=== PATIENT | female | born 1965 | race Caucasian/White ===

== ENCOUNTER → 2018-01-05 | Outpatient (CLI) | payer BC ==
[~2018-01-05] MED LIST: HCTZ25; LEVO50TA80; LIOT5TAB12; TIZA4CAP PO
--- NOTE | 2018-01-05 15:40 | RADIOLOGY IMAGING REPORT ---
[place] [facility] [place]IENT NAME: Nikkie Schmidt : 1965 MR: [id number] V: [id number] EXAM DATE: ORDERING PHYSICIAN: BRITTANI RODRIGUES TECHNOLOGIST: Location: [facility] Patient: Nikkie Schmidt : 1965 Visit/Account:[id number] Date of Sevice: 01/05/2018 PELVIC HISTORY: Uterine fibroids seen on outside CT TECHNIQUE: Transvaginal and transabdominal ultrasound pelvis. COMPARISON: None. FINDINGS: Uterus: ; 7.8 cm length x 4.4 cm AP x 5.8 cm transverse. Myometrium: Numerous fibroids are seen throughout the uterus. The largest is anterior and fundal todd suring 2.9 x 2.4 x 2.6 cm. Endometrium: Endometrium was not well visualized due to displacement from the uterine fibroids; doubl e Cervix: Not well seen. Ovaries: Right - not visualized Left - not visualized Adnexa: Grossly unremarkable. Free pelvic fluid: None. IMPRESSION: Numerous fibroids are seen within the uterus. The largest measures approximately 2.9 cm in diameter. The endometrium was not well seen due to distortion from the fibroids Neither ovary was visualized. Cervix not well seen Report Dictated By: Yessenia Woodruff MD at 01/05/2018 3:28 PM Report E-Signed By: Yessenia Woodruff MD at 01/05/2018 3:35 PM WSN:[id number]
--- NOTE | 2018-01-06 08:10 | RADIOLOGY IMAGING REPORT ---
FACILITY: [facility] - [place] PATIENT NAME: JERI COLON : [id number] MR: [id number] V: [id number] EXAM DATE: [id number] ORDERING PHYSICIAN: BRITTANI RODRIGUES TECHNOLOGIST: Bibiana Alvarez PROCEDURE:BILATERAL DIGITAL SCREENING MAMMOGRAM WITH CAD ASSISTED INTERPRETATION & 3D TOMOSYNTHESIS COMPARISON:Prior mammograms 06/19/16, 06/17/16, 11/18/14, 05/07/12. INDICATIONS:SCREENING FINDINGS: Extremely dense heterogeneous fibroglandular tissue is seen throughout the breasts. The parenchymal pattern has remained stable allowing for difference in mammographic technique & patient positioning. There is no evidence of malignant appearing mass, malignant appearing calcifications or other secondary sign of malignancy in either breast. DIAGNOSTIC CATEGORY 1--NEGATIVE. RECOMMENDATIONS: ROUTINE MAMMOGRAM AND CLINICAL EVALUATION. IMPRESSION: BIRADS 1: Negative. No significant abnormality is seen. Dictated by: Yessenia Woodruff M.D. on 01/05/2018 at 17:39 Transcribed by: AZEB on 01/06/2018 at 8:04 Approved by: Yessenia Woodruff M.D. on 01/06/2018 at 8:09 [facility]
== END ==
LOC: MAMO 07:05
PROVIDERS: ATTEND Family Medicine
DX: Z12.31 Encounter for screening mammogram for malignant neoplasm of breast (principal); D25.9 Leiomyoma of uterus, unspecified
CPT/HCPCS: 76856; 77063; 77067